=== PATIENT | male | born 1995 | race Caucasian/White ===

== ENCOUNTER 2016-07-02 09:36 | Emergency (ER) | payer OTHER ==
--- NOTE | 2016-07-02 11:04 | ER Document Report ---
ED ENT - General Chief Complaint: Sore Throat Stated Complaint: THROAT PAIN Mode of Arrival: Ambulatory Information source: Patient Notes: 20-year-old well-appearing male presents to the emergency department complaining of feeling like there is something in the back of his throat. Patient reports over the last 2 days has felt like there something in the posterior right part of his throat. States looked in the back of his throat this morning and saw a white spot. Reports throat is not sore but is "uncomfortable"and swallowing. Denies fever, recent illness, difficulty breathing or swallowing. TRAVEL OUTSIDE OF THE [place] IN LAST 30 DAYS: No - HPI Patient complains to provider of: Throat problem Onset/Duration: Persistent Severity: Mild Pain Level: Denies Context: denies: Recent Illness Associated symptoms: denies: Difficulty swallowing, Drooling, Fever, Neck pain Similar symptoms previously: No Recently seen / treated by doctor: No Past Medical History - General Information source: Patient - Social History Smoking Status: Never Smoker Chew tobacco use (# tins/day): No Frequency of alcohol use: None Drug Abuse: None Family History: Reviewed & Not Pertinent - Medical History Medical History: Negative Renal/ Medical History: Denies: Hx Peritoneal Dialysis Surgical Hx: Negative - Immunizations Immunizations up to date: Yes Hx Diphtheria, Pertussis, Tetanus Vaccination: Yes Review of Systems - Review of Systems Constitutional: No symptoms reported EENT: See HPI Cardiovascular: No symptoms reported Respiratory: No symptoms reported Gastrointestinal: No symptoms reported Genitourinary: No symptoms reported Male Genitourinary: No symptoms reported Musculoskeletal: No symptoms reported Skin: No symptoms reported Hematologic/Lymphatic: No symptoms reported Neurological/Psychological: No symptoms reported -: Yes All other systems reviewed and negative Physical Exam - Vital signs Vitals: Temp Pulse Resp BP Pulse Ox 98.2 F 72 12 142/82 H 99 07/02/16 09:37 07/02/16 09:37 07/02/16 09:37 07/02/16 09:37 07/02/16 09:37 - General General appearance: Appears well, Alert In distress: None - HEENT Head: Normocephalic, Atraumatic Eyes: Normal Conjunctiva: Normal Cornea: Normal Eyelashes: Normal Pupils: PERRL Ears: Normal External canal: Normal Tympanic membrane: Normal Sinus: Normal Nasal: Normal Mouth/Lips: Normal Mucous membranes: Normal, Moist Pharynx: Other - Patient has what appears to be small tonsillolith to right tonsil with very mild <+1 right tonsil enlargement. No indication of abscess... No: Normal, Blood in hypopharynx, Erythema, Exudate, Peritonsillar abscess, Post nasal drainage, Retropharyngeal abscess, Tonsillar hypertrophy, Uvular edema, Potential airway comprom. Neck: Normal. No: Anterior cervical chain, Posterior cervical chain, Lymphadenopathy, Meningismus, Subcutaneous emphysema - Respiratory Respiratory status: No respiratory distress Chest status: Nontender Breath sounds: Normal Chest palpation: Normal - Cardiovascular Rhythm: Regular Heart sounds: Normal auscultation Murmur: No Pulses: Normal: Radial Normal capillary refill: Yes - Neurological Neuro grossly intact: Yes Cognition: Normal Orientation: AAOx4 [place] Coma Scale Eye Opening: Spontaneous [place] Coma Scale Verbal: Oriented [place] Coma Scale Motor: Obeys Commands [place] Coma Scale Total: 15 Speech: Normal Motor strength normal: LUE, RUE, LLE, RLE Sensory: Normal - Skin Skin Temperature: Warm Skin Moisture: Dry Skin Color: Normal Course - Re-evaluation Re-evalutation: 07/02/16 10:55 Patient hemodynamically stable, in no distress, afebrile, nontoxic, and very well-appearing. Patient tolerating oral fluids without difficulty. Physical exam findings suggestive of small tonsillolith without indication of abscess, significant tonsillitis, or other emergent or significant complications at this time. Patient appears stable for discharge and agrees with home care, follow-up , and ED return precautions. - Vital Signs Vital signs: Temp Pulse Resp BP Pulse Ox 98.2 F 72 15 142/82 H 99 07/02/16 09:37 07/02/16 09:37 07/02/16 09:55 07/02/16 09:37 07/02/16 09:37 Discharge - Discharge Clinical Impression: Tonsil stone Condition: Stable Disposition: HOME, SELF-CARE Additional Instructions: Your strep test was negative. A culture was obtained. If bacterial growth is noted that requires antibiotic treatment you'll be contacted within 2 days with instructions on treatment. If you do not receive a call, please call back for results. It appears you have a small tonsil stone. These are benign and things you can do at home are: -Gentle cleaning of the posterior portion of the tongue (eg, with a plastic tongue carbonating stone cleaner). -Rinsing and deep gargling with an effective mouthwash (in order to get the liquid as far back as possible without swallowing it, one can extend the tongue while gargling). This is most effective when done at bedtime. -Eating fibrous foods (a healthy breakfast can be recommended). -Chewing gum briefly (five minutes is often sufficient) if the mouth is dry, or after meals, especially with high protein intake. Sugar-free gum is preferable. -Sufficient water intake. At least 2 liters of water per day. -Decreasing alcohol and coffee intake. Follow-up with your primary care provider and ENT in 1-2 days if symptoms persist. Return to the emergency department if you have increasing throat pain, fever, rash, difficulty swallowing, or any other worsening symptoms or concerns. Forms: Return to Work Referrals: [facility] [Provider Group] - Follow up tomorrow
[2016-07-02 11:10] VITALS: BP 137/74
== END 2016-07-02 11:08 | disposition home or self-care (01) ==
LOC: ER 09:36
DX: J35.8 Other chronic diseases of tonsils and adenoids (principal); J02.9 Acute pharyngitis, unspecified
CPT/HCPCS: 87070; 87880; 99283